=== PATIENT | male | born 1940 | race Caucasian/White ===

== ENCOUNTER 2021-01-12 12:50 | Outpatient (CLI) | payer MEDICARE | END 2021-01-12 12:51 | disposition home or self-care (01) | LOC: CSHMRI 12:50 | PROVIDERS: ATTEND Orthopaedic Surgery | DX: M23.92 Unspecified internal derangement of left knee (principal); M84.452A Pathological fracture, left femur, initial encounter for fracture; S83.232A Complex tear of medial meniscus, current injury, left knee, initial encounter; M25.462 Effusion, left knee ==